=== PATIENT | female | born 1950 | race Caucasian/White ===

== ENCOUNTER 2017-04-18 12:30 | Inpatient (IN) | payer MEDICARE ==
[2017-05-01] MEDS ORDERED: FAMOTIDINE 20MG TABLET PO ONE (06:00)
[2017-05-01] MEDS ORDERED: ACETAMINOPHEN 1,000 MG/100 ML BTL IV ONE (06:00)
[2017-05-01] MEDS ORDERED: CEFAZOLIN 2 Gram 2 GM/50 ML BAG IVPB ONE (06:00)
[2017-05-01] MEDS ORDERED: MECLIZINE 25 MG TABLET PO ONE (06:00)
[2017-05-01] MEDS ORDERED: METOCLOPRAMIDE 10 MG TABLET PO ONE (06:00)
[2017-05-01] MEDS ORDERED: BUPIVACAINE 0.5% W/EPI MPF 30 ML VIAL IVP ONE (08:03)
[2017-05-01] MEDS ORDERED: DIPHENHYDRAMINE HCL 25 MG CAPSULE PO PRN (13:00)
[2017-05-01] MEDS ORDERED: METOCLOPRAMIDE HCL 10 MG/2 ML VIAL IVP PRN (13:00)
[2017-05-01] MEDS ORDERED: MAGNESIUM HYDROXIDE 30 ML UDC PO PRN (13:00)
[2017-05-01] MEDS ORDERED: ONDANSETRON HCL IV 4 MG/2 ML VIAL IVP PRN (13:00)
[2017-05-01] MEDS ORDERED: SENNOSIDES/DOCUSATE SODIUM UD CAPSULE PO PRN (13:00)
[2017-05-01] MEDS ORDERED: OXYCODONE HCL 5 MG TABLET PO PRN ×2 (13:00)
[2017-05-01] MEDS ORDERED: AL HYDROX/MAG HYDROX 30ML UD PO PRN (13:00)
[2017-05-01] MEDS ORDERED: HYDROMORPHONE HCL 1 MG/ML CPJ IVP PRN (13:00)
[2017-05-01] MEDS ORDERED: TRAMADOL HCL 50 MG TABLET PO PRN ×2 (13:00)
[2017-05-01] MEDS ORDERED: ZOLPIDEM TARTRATE 5 MG TABLET PO PRN (13:00)
[2017-05-01] MEDS ORDERED: NALOXONE 0.4 MG/1 ML VIAL IVP PRN (13:15)
[2017-05-01] MEDS: RINGERS SOLUTION,LACTATED 1,000 ML IV SCH (13:30)
[2017-05-01] MEDS ORDERED: LIDOCAINE 2% MDV (20MG/ML) 20ML VIAL IV ONE (14:00)
[2017-05-01] MEDS ORDERED: PROPOFOL 10 MG/ML VIAL IV ONE (14:00)
[2017-05-01] MEDS ORDERED: NEOSTIGMINE 1 MG/1 ML,10ML VIAL IV ONE (14:00)
[2017-05-01] MEDS ORDERED: ROCURONIUM BROMIDE 50MG/5ML VIAL IV ONE (14:00)
[2017-05-01] MEDS ORDERED: FENTANYL PF 0.25MG/5ML AMPUL IV ONE (14:00)
[2017-05-01] MEDS ORDERED: SEVOFLURANE 250 ML INH ONE (14:00)
[2017-05-01] MEDS ORDERED: MIDAZOLAM HCL 2MG/2ML VIAL IV ONE (14:00)
[2017-05-01] MEDS ORDERED: HYDROMORPHONE HCL 2 MG/ML VIAL IV ONE ×2 (14:00)
[2017-05-01] MEDS ORDERED: KETOROLAC 30 MG/ML VIAL IVP ONE (14:00)
[2017-05-01] MEDS ORDERED: GLYCOPYRROLATE 0.2 MG/ML ML IV ONE (14:00)
[2017-05-01] MEDS ORDERED: SUCCINYLCHOLINE 20 MG/ML 10ML IVP ONE (14:00)
[2017-05-01] MEDS ORDERED: ONDANSETRON HCL IV 4 MG/2 ML VIAL IVP ONE (14:00)
--- NOTE | 2017-05-01 14:50 | Operative Note ---
DATE OF SURGERY: 05/01/2017 Surgeon: Enrique Zavala DO PREOPERATIVE DIAGNOSIS: Primary osteoarthritis of the right hip. POSTOPERATIVE DIAGNOSIS: Primary osteoarthritis of the right hip. OPERATION: Right total hip arthroplasty. DESCRIPTION OF PROCEDURE: This 67-year-old female was taken to the operating room, placed in the supine position on the operating room table where general anesthesia was induced. The patient was then placed in a left lateral decubitus position and bolstered perpendicular to the floor and secured in this position. The right hip was then prepped with Hibiclens and draped in the usual sterile fashion. All scrub personnel wore personal isolation suits. A lateral hip incision was made dissecting down through the skin and subcutaneous tissue. Hemostasis obtained with the electrocautery. The tensor was identified and split in line with the skin incision. Gluteus david was divided to as far as the short rotators posteriorly. A self-retaining hip retractor was placed. The short rotators, a dividing capsulotomy was performed and Steinmann pins were used as retractors; one superiorly and one posterosuperiorly and one posteroinferiorly for excellent exposure to the acetabulum. A rosey was made on the greater trochanter and this was measured to the proximal pin and its length restored at the completion of the procedure. The hip was then dislocated and the neck amputated. A Cobra retractor was placed anteriorly. Osteophytes were present inferiorly. These were removed. We then began reaming with a size 44 mm reamer in 1 mm increments to the base of the condyloid notch at 48 mm. A 48 mm cup was then impacted into place at 40-45 degrees of abduction and approximately 20 degrees of anteversion after we had already trialed with the trial cup. A trial liner was subsequently placed and we then directed our attention to the proximal femur. A retractor was placed under the femur for better exposure and a printing roller handler was passed down the shaft of the femur and subsequently, using an alternating ream/broach technique, a size 5 broach was placed. The calcar reamer was used. Subsequently a size 6 was placed and that seemed to be the appropriate size. It was extremely tight. We then placed the head and neck and reduced it. We initially used a 0 and found it to be not long enough and subsequently a +2.5 was used. This gave us confucianist of anatomic length. The hip was taken through range of motion with excellent stability being identified. The hip was then copiously irrigated with lactated Ringer's solution after all trial components had been removed. It was suctioned and a 36 x 48 mm X3 liner was impacted into place. This was 0 degrees. Subsequently, a size 6 collared Secur-Fit femoral component was impacted into place with excellent fit of the femur and the size 36 mm Biolox +2.5 head was impacted into place. The hip reduced. The hip again taken through range of motion and found to be stable. The short rotators and capsulotomy were repaired. Drill holes through the posterior aspect of the greater trochanter and a drain placed through a separate stab incision. The tensor closed with #2 Vicryl. The subcutaneous tissue closed in 2 layers with 0 Vicryl. The skin was stapled. Sterile dressings applied. The patient taken to the recovery room on satisfactory condition. GROSS PATHOLOGY: This patient had severe full-thickness articular cartilage loss noted on the femoral head, and the acetabulum demonstrated osteophytes inferiorly which were removed as described above. Final components inserted were a [place] Secur-Fit size 6 collared femoral component, a 48 mm Trident cup, a 36 mm X3 liner, and a 36 mm Biolox +2.5 head was used. [facility]
[2017-05-01] MEDS: ACETAMINOPHEN 1,000 MG/100 ML BTL IV SCH ×2 (16:02→21:13)
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
[2017-05-01] MEDS: CEFAZOLIN 2 Gram 2 GM/50 ML BAG IVPB SCH (18:13)
[2017-05-01] MEDS: ASPIRIN 325 MG TAB ENTERIC-COATED PO SCH (21:14)
[2017-05-01] MEDS ORDERED: POTASSIUM CHLORIDE 20 MEQ TABLET PO SCH (22:00)
[2017-05-01] MEDS ORDERED: METFORMIN 500 MG TABLET PO SCH (22:00)
[2017-05-01] MEDS ORDERED: METOPROLOL SUCC 50 MG TABLET PO SCH (22:00)
[2017-05-02] MEDS: CEFAZOLIN 2 Gram 2 GM/50 ML BAG IVPB SCH ×2 (02:40→10:12)
[2017-05-02] MEDS: ACETAMINOPHEN 1,000 MG/100 ML BTL IV SCH (03:22)
[2017-05-02] MEDS: RINGERS SOLUTION,LACTATED 1,000 ML IV SCH (04:40)
[2017-05-02 06:36] LABS: HEMOGLOBIN 10.5 gm/dl (11.6-16.0); MEAN CELL VOLUME 84.4 fl (81-97); MEAN CORPUSCULAR HEMOGLOBIN 27.7 pg (27-33); MEAN CORPUSCULAR HGB CONC 32.8 g/dl (32-36); MEAN PLATELET VOLUME 11.3 fl (7.4-10.4); PLATELET COUNT 246 K/uL (130-400); RED BLOOD COUNT 3.79 M/uL (3.80-5.40); RED CELL DISTRIBUTION WIDTH 13.7 % (11.5-14.5); WHITE BLOOD COUNT W/O DIFF 7.6 K/uL (4.2-12.2)
[2017-05-02] MEDS ORDERED: LEVOTHYROXINE SODIUM 25 MCG TABLET PO SCH (07:00)
--- NOTE | 2017-05-02 07:40 | RADIOLOGY REPORT ---
EXAM: RIGHT HIP, TWO VIEWS HISTORY: STATUS POST TOTAL RIGHT HIP ARTHROPLASTY. TECHNIQUE: Two views of the right hip were obtained. Comparison: Pelvis 08/14/16. FINDINGS: Status post total right hip arthroplasty. Anatomic alignment. No fracture. Drainage catheter in place. IMPRESSION: STATUS POST TOTAL RIGHT HIP ARTHROPLASTY. NO IMMEDIATE COMPLICATION. JOB NUMBER: [id number] MTDD
[2017-05-02] MEDS ORDERED: TRIAMTERENE 37.5/HCTZ 25 CAPSULE PO SCH (10:00)
[2017-05-02] MEDS: ASPIRIN 325 MG TAB ENTERIC-COATED PO SCH (10:12)
--- NOTE | 2017-05-02 11:32 | Physical Therapy Tx Note ---
Physical Therapy Tx Note - Treatment Note Tolerated: Good (Pt. did not report increased pain following tx.) Total Time Spent With Patient: 30 Physical Therapy Tx Note: Detail (Pt. reports decreased pain in her R hip since the initial eval and reports no nausea or dizziness. When asked about hip precautions pt. was able to state them back to PT with full understanding. Pt. completed sit to stand transfer CGA with no verbal cueing. Pt. ambulated 74 ft. with CGA and use of a front wheeled walker. With patient seated, pt. completed a quad set 1x10, glute set 1x10 and ankle pumps, and active hip ABD bilat. Instructed pt. not to bring her R hip past midline when performing hip ABD ex. Pt. tolerated treatment well with no complaints or increase in pain. Pt. did not become fatigued after ambulation or exercise. Pt. exhibited quad weakness when doing her quad sets. Pt. was left seated with her call light available. Nursing staff was notifed. Continue per POC.) Physical Therapy Problem List: Detail (1) Inability to verbalize understanding of hip precautions 2) LE weakness 3) LE ROM restriction 4) Assistance with bed mobility and transfers) Physical Therapy Goals: 1) Pt. will independently ambulate household distances with or without AD and not exhibit loss of midline positioning. 2) Pt. will be independent with bed mobility and transfer. 3) Pt. will independently ascend and descend 3 steps with or without AD. 4) Pt. will verbalize understanding of hip precautions. Prognosis: Good Physical Therapy Plan: Pt. will be seen 1-2x per day for inpatient PT until all goals met for safe D/C to home environment.
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
[2017-05-02] MEDS ORDERED: OXYCODONE/APAP 7.5MG/325MG TABLET PO PRN ×2 (13:00)
[2017-05-02] MEDS ORDERED: ACETAMINOPHEN 325 MG TAB PO PRN (13:00)
[2017-05-02] MEDS ORDERED: HYDROCODONE/APAP 7.5/325MG TABLET PO PRN ×2 (13:00)
--- NOTE | 2017-05-02 15:19 | Physical Therapy Tx Note ---
Physical Therapy Tx Note - Treatment Note Tolerated: Good Total Time Spent With Patient: 20 Physical Therapy Tx Note: Detail (Pt. reported pain got up to 7/10 when she had gotten out of bed earlier, but that pain is 5/10 currently. Pt. independent with sit to stand tranfer CGA. Pt. min assist +1 with seated to supine transfer , only with lifting her R leg into bed. Pt. ambulated 74 ft. CGA with front wheeled walker. Pt. descended and ascended 3 steps CGA using a hurry cane. Pt. does not have a hand rail for stairs at home so instructed her to make sure she has someone there to hold onto while ascending/descending stairs. Instructed and educated pt. on why to have cane in her L hand with ambulation and when doing stairs. Pt. acknowledged understanding of proper use of cane. Pt. gave verbal understanding of hip precautions. Pt. had no complaints with ambulation and stairs. Pt. reported pain at 2/10 following treatment. Pt. is appropriate for D/C for she has accomplished all of her goals for PT.) Physical Therapy Problem List: Detail (1) Inability to verbalize understanding of hip precautions 2) LE weakness 3) LE ROM restriction 4) Assistance with bed mobility and transfers) Physical Therapy Goals: 1) Pt. will independently ambulate household distances with or without AD and not exhibit loss of midline positioning. 2) Pt. will be independent with bed mobility and transfer. 3) Pt. will independently ascend and descend 3 steps with or without AD. 4) Pt. will verbalize understanding of hip precautions. Prognosis: Good (Appropriate for D/C.) Physical Therapy Plan: Discharge pt. from in-patient PT.
--- NOTE | 2017-05-05 12:50 | Discharge Summary ---
DATE OF ADMISSION: 05/01/2017 DATE OF DISCHARGE: 05/02/2017 ADMITTING DIAGNOSIS: Osteoarthritis of the right hip. DISCHARGE DIAGNOSIS: Osteoarthritis of the right hip. OPERATIVE PROCEDURE: Elective right total hip arthroplasty. DESCRIPTION: This 67-year-old female was admitted to the hospital for elective total hip arthroplasty and tolerated the operative procedure well. She progressed satisfactorily with physical therapy the first postoperative day. The drain was removed and she was cleared by Physical Therapy. The patient was ready for discharge. She had only been taking Tylenol for pain. No narcotics. The patient will be discharged with home physical therapy. She will wear her ALEN nose during the day and remove them at night. She will take aspirin 325 mg b.i.d. for 2 weeks. She was given a prescription for [place] 5/325 one every 6 hours p.r.n. pain. Routine wound care instructions were given. She will follow up in 2 weeks. Should she have any problems prior to being seen, she was instructed to call my office. MILO
== END 2017-05-02 18:30 | disposition home or self-care (01) | DRG 470 ==
LOC: MEDSURG 05-01 07:58
PROVIDERS: ADMIT Orthopaedic Surgery; ATTEND Orthopaedic Surgery
PROC: 0SR904A Replacement of Right Hip Joint with Ceramic on Polyethylene Synthetic Substitute, Uncemented, Open Approach (ICD-10-PCS; principal; 2017-05-01 10:30)
DX: M16.11 Unilateral primary osteoarthritis, right hip (principal); E03.9 Hypothyroidism, unspecified; I10 Essential (primary) hypertension; E11.8 Type 2 diabetes mellitus with unspecified complications; Z79.84 Long term (current) use of oral hypoglycemic drugs
CPT/HCPCS: 36416; 82948; 85025; 97110; 97116; 97165; C1776; J0330; J1885; J2405; J2710; J7120

== ENCOUNTER 2018-02-20 10:52 | Day surgery (SDC) | payer MEDICARE ==
[2018-02-20] MEDS ORDERED: LIDOCAINE 1% MDV (10MG/ML) 20ML VIAL SQ ONE (10:53)
[2018-02-20] MEDS ORDERED: PROPOFOL 10 MG/ML VIAL IV ONE (10:53)
--- NOTE | 2018-03-04 12:50 | Operative Note ---
DATE OF SURGERY: 02/20/2018 SURGEON: Abebe Hernandez MD OPERATION: COLONOSCOPY. INDICATIONS: This is a 68-year-old female with history of colon polyps who also has had history of diverticular disease for which she had ileocolonic anastomosis and now presents for colonoscopy. POSTOPERATIVE DIAGNOSES: 1. Left-sided colonic diverticulosis with ileocolonic anastomosis. 2. Grade 1 internal hemorrhoids. ANESTHESIA: Sedation is per Anesthesia. Pulse oximetry was monitored throughout the procedure to maintain O2 saturation of 90% or greater. Supplemental oxygen was administered via nasal cannula. Cardiac and vital signs were monitored throughout the duration of the procedure, and they were stable. The procedure of colonoscopy and risks and alternatives of the procedure, including the risk of bleeding and perforation, among others, were explained to the patient who voiced understanding and agreed to have the procedure done. Physical examination was performed, and the patient was found stable for sedation. PROCEDURE: The patient was placed in the left lateral position. Sedation was initiated. A digital rectal exam was performed and showed some mild external hemorrhoids with no palpable rectal masses. An Olympus PCF-180AL colonoscope was then inserted into the rectum under direct visualization. It was advanced to the cecum without difficulty. The ileocecal valve and appendiceal orifice were identified and photographed. The colonic mucosa was carefully examined upon introduction of the colonoscope. There were scattered diverticula noted in the sigmoid and descending colon. In the sigmoid colon was ileocolonic anastomosis with no abnormalities noted. There were no other lesions noted. The colonoscope was then withdrawn while carefully examining the colonic mucosal surfaces. No other lesions were noted. In the rectum, retroflexion was performed and grade 1 internal hemorrhoids were noted. The colonoscope was then withdrawn and the procedure was terminated. The patient tolerated the procedure well without any immediate complications. The patient remained with stable vital signs and was transferred to the recovery room. RECOMMENDATIONS: 1. The patient should be on a high-fiber diet. 2. The patient is to have a repeat colonoscopy for screening in 5 years. Thank you for allowing me to participate in the care of your patient. CC: Pushpa SILVEIRA
== END 2018-02-20 13:20 | disposition home or self-care (01) ==
LOC: HOP 10:52
PROVIDERS: ATTEND Internal Medicine Gastroenterology
DX: Z12.11 Encounter for screening for malignant neoplasm of colon (principal); Z86.010 Personal history of colon polyps; K57.30 Diverticulosis of large intestine without perforation or abscess without bleeding; K63.89 Other specified diseases of intestine; K64.0 First degree hemorrhoids; E11.9 Type 2 diabetes mellitus without complications; E03.9 Hypothyroidism, unspecified; I10 Essential (primary) hypertension